=== PATIENT | female | born 2000 | race Caucasian/White ===

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

== ENCOUNTER 2022-05-24 11:51 | Emergency (ER) | payer MEDICAID ==
[~2022-05-24] VITALS: Ht 167.6 cm; Wt 73.9 kg
[2022-05-24 11:54] VITALS: BP 137/81
[2022-05-24] MEDS ORDERED: ondansetron 4mg rapidly disintigrating tab PO ONE (13:55)
== END 2022-05-24 14:18 | disposition home or self-care (01) ==
LOC: ER 11:52
DX: T83.84XA Pain due to genitourinary prosthetic devices, implants and grafts, initial encounter (principal); R10.30 Lower abdominal pain, unspecified; Y83.8 Other surgical procedures as the cause of abnormal reaction of the patient, or of later complication, without mention of misadventure at the time of the procedure
CPT/HCPCS: 74018; 99283